=== PATIENT | male | born 1965 | race African-American/Black ===

== ENCOUNTER 2019-01-22 08:04 | Emergency (ER) | payer BC ==
[2019-01-22 08:08] VITALS: TEMP 98; BMI 29.5
--- NOTE | 2019-01-22 08:31 | PDOC ---
Attending Attestation - Resident Resident Name: Wilver Grimm - ED Attending Attestation I have performed the following: I have examined & evaluated the patient, The case was reviewed & discussed with the resident, I agree w/resident's findings & plan, Exceptions are as noted - HPI HPI: 01/22/19 08:30 53y M no pmhx presents with complaint of chest pain since this morning. Pt states he woke up with the pain - the pain is a nonradiating aching pressure elkin is there when he takes a deep breath or moves his L arm. Pt denies any sob, cough, fever/chills, asher, hemoptysis, n/v, diaphoreis, abd pain, back pain. 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 Pt took a akselzer withou improvment. pt is not current smoking (smoked 1/2pack a day for5 yeas in the past) denies any drug use family of CAD in 80s - Physicial Exam PE: 01/22/19 09:38 GENERAL: The patient is awake, alert, and fully oriented, Nontoxic - in no acute distress. HEAD: Normocephalic, atraumatic. EYES: extraocular movements intact, sclera anicteric, conjunctiva clear. ENT: Normal voice, Moist mucous membranes. NECK: Normal range of motion, supple LUNGS: Breath sounds equal, clear to auscultation bilaterally. No wheezes, no rhonchi, no rales. HEART: Regular rate and rhythm, normal S1 and S2 without murmur, rub or gallop. CHEST: Reproducible tenderness on the mid sternum and left parasternal regin tht exactly reproduces his pain, possible reproduced with shoulder extension/ aduction. ABDOMEN: Soft, nontender, No guarding, no rebound. No CVA tenderness EXTREMITIES: Normal range of motion, no edema. NEUROLOGICAL: No facial assymetry, Normal speech, PSYCH: Normal mood, normal affect. SKIN: Warm, Dry, normal turgor, - Medical Decision Making 01/22/19 09:40 Suspect the patient's symptoms are muscular in nature as it is exactly reproduced when his shoulder is extended and abducted. Screening EKG was performed which was unremarkable Will obtain will give Tylenol for pain Heart Score/ECG Review - ECG Impressions Comment:: 01/22/19 09:41 Twelve-lead EKG was performed and reviewed by me. There is normal sinus rhythm with a normal rate. Rate of 78 The axis is normal. The intervals are normal. There is normal R wave progression There are no ST or T wave abnormalities. Impression: Normal twelve-lead EKG
--- NOTE | 2019-01-22 08:36 | PDOC ---
History of Present Illness - General Chief Complaint: Chest Pain Stated Complaint: CHEST PAIN Time Seen by Provider: 01/22/19 08:13 History Source: Patient Exam Limitations: No Limitations - History of Present Illness Initial Comments: 01/22/19 18:12 HPI: 53M w/o PMH c/o nonradiating, constant, dull pressure like midsternal chest pain that started when he woke up 5:30 AM today. Pain is worse w/ sitting up and deep inspiration. Pt took yue-seltzer w/o relief. Denies sob, palpitations , f/c/cough/runnynose/rhinorrhea, n/v/abdpain. Denies h/o VTE or recent immobilization. 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 Denies trauma. Denies PMH No PCP Allergies reviewed - ibuprofen (stomach ache) Denies smoking, drinking, ilicit drugs +FHx heart dz in father Past History - Past Medical History Allergies/Adverse Reactions: Allergies Allergy/AdvReac Type Severity Reaction Status Date / Time ibuprofen Allergy Verified 01/22/19 08:08 Home Medications: Ambulatory Orders NK [No Known Home Medication] 01/22/19 COPD: No - Psycho Social/Smoking Cessation Hx Smoking History: Never smoked Review of Systems - Review of Systems Able to Perform ROS?: Yes Comments:: 01/22/19 18:12 ROS: CONSTITUTIONAL: Denies F / C HEENT: Denies lightheadedness, dizziness. Denies sore throat, rhinorrhea. RESP: Denies SOB, cough CARD: Endorses chest pain. Denies palpitations GI: Denies N / V / D, abdominal pain : Denies dysuria SKIN: Denies rashes Is the patient limited Armenian proficient: No *Physical Exam - Vital Signs Last Vital Signs Temp Pulse Resp BP Pulse Ox 98 F 82 18 116/80 99 01/22/19 08:06 01/22/19 08:15 01/22/19 08:06 01/22/19 08:06 01/22/19 08:15 - Physical Exam Comments: 01/22/19 18:12 PE: VS reviewed GEN: Well appearing, NAD, comfortable. AAOx3 HEENT: NC/AT. No facial asymmetry. Moist mucous membranes. Normal voice. Supple neck w/ FROM. CV: +TTP of the midsternum (pt describes as the same pain). S1/S2, RRR, no m/r/g LUNG: Normal inspiratory effort, pt states same pain w/ deep inspiration. CTAB, no wheezes, crackles, rales, rhonchi. GI: soft, ndnt, +BS, no guarding, no rebound. EXTREMITIES: No LE edema. No obvious deformities of all extremities. SKIN: warm, dry, normal turgor PSYCH: normal mood and affect NEURO: Moving all extremities well, ambulating w/ normal gait Medical Decision Making - Medical Decision Making 01/22/19 08:33 MDM: 53M otherwise healthy c/o dull constant nonradiating chest pain worse w/ deep inspiration and palpation since 5:30am. Has a job that requires heavy pushing/ pulling. DDx - very likely MSK - EKG - CXR - Pain ctrl EKG 01/22/19 09:17 HR 78 PA 150 QRS 98 QTc 410 NSR 01/22/19 09:15 CXR demonstrates no acute pathology reassess after tylenol 01/22/19 09:39 pain decreased w/ tylenol DC home w/ PCP f/u and return precautions Discharge - Discharge Information Problems reviewed: Yes Clinical Impression/Diagnosis: Muscular pain Condition: Stable - Follow up/Referral Referrals: [facility] [place] [Provider Group] - Patient Discharge Instructions Patient Printed Discharge Instructions: DI for Muscle Strain Additional Instructions: You were seen in the Emergency Department Take tylenol for pain as directed on the label We have referred you to the [facility] - You can receive your primary care there. Call the number provided to schedule an appointment. Follow up with this clinic regarding your visit in the next 2-3 days. IMMEDIATELY return to the Emergency Department if you experience any of the following: - worsening symptoms - shortness of breath - ANYTHING that concerns you - Post Discharge Activity
[2019-01-22] MEDS ORDERED: ACETAMINOPHEN 325 MG TABLET (FP) PO ONE (09:04)
[2019-01-22] MEDS ORDERED: ACETAMINOPHEN 325 MG TABLET (FP) ONE (09:07)
[2019-01-22 09:25] VITALS: BP 127/74; PULSE 68
--- NOTE | 2019-01-23 10:16 | EKG ---
Test Reason : Blood Pressure : / mmHG Vent. Rate : 078 BPM Atrial Rate : 078 BPM P-R Int : 150 ms QRS Dur : 098 ms QT Int : 360 ms P-R-T Axes : 034 023 021 degrees QTc Int : 410 ms NORMAL SINUS RHYTHM NORMAL ECG NO PREVIOUS ECGS AVAILABLE Confirmed by SARAH CHARLES MD ([id number]) on 01/23/2019 10:16:10 AM Referred By: Confirmed By:SARAH CHARLES MD
== END 2019-01-22 09:48 | disposition home or self-care (01) ==
LOC: JER 08:04
DX: M79.10 Myalgia, unspecified site (principal); R07.9 Chest pain, unspecified; Z88.6 Allergy status to analgesic agent
CPT/HCPCS: 71046-TC-FY; 93005; 93010; 99283-25

== ENCOUNTER 2020-04-23 13:18 | Emergency (ER) | payer BC ==
[2020-04-23 13:48] VITALS: BMI 28.7
[2020-04-23 15:12] LABS: BASO % 0.6 % (0-2.0); EOS % 1.2 % (0-4.5); HEMATOCRIT 44.1 % (35.4-49); HEMOGLOBIN 14.8 GM/dL (11.7-16.9); MCH 30.8 pg (25.7-33.7); MCHC 33.6 g/dl (32.0-35.9); MEAN CELL VOLUME 91.7 fl (80-96); MEAN PLT VOLUME 8.9 fl (7.5-11.1); MONO % 7.9 % (3.8-10.2); NEUT % 62.3 % (42.8-82.8); PLATELET COUNT 193 K/MM3 (134-434); RBC 4.81 M/mm3 (4.00-5.60); RDW 14.5 % (11.9-15.9); WHITE BLOOD COUNT 5.3 K/mm3 (4.0-10.0)
[2020-04-23 15:19] LABS: INR 1.06 (0.83-1.09); PROTHROMBIN TIME (PATIENT) 12.8 SEC (9.7-13.0)
[2020-04-23 15:22] LABS: ACTIVATED PTT 31.4 SECONDS (25.2-36.5); CHLORIDE 110 mmol/L (98-107); POTASSIUM 4.1 mmol/L (3.5-5.1); SODIUM 144 mmol/L (136-145)
[2020-04-23 15:25] LABS: CALCIUM 8.9 mg/dL (8.5-10.1)
[2020-04-23 15:26] LABS: ALBUMIN 3.5 g/dl (3.4-5.0); ANION GAP 7 MMOL/L (8-16); BLOOD UREA NITROGEN 12.6 mg/dL (7-18); CO2 26 mmol/L (21-32); GLUCOSE,RANDOM 87 mg/dL (74-106)
[2020-04-23 15:28] LABS: SGOT/AST 16 U/L (15-37); SGPT/ALT 13 U/L (13-61)
[2020-04-23 15:30] LABS: BILIRUBIN,TOTAL 0.4 mg/dL (0.2-1); TOT PROT 6.8 g/dl (6.4-8.2)
[2020-04-23 15:31] LABS: ALK PHOS 74 U/L (45-117)
[2020-04-23] MEDS ORDERED: SODIUM CHLORIDE 1,000 ML IV ONE (15:52)
[2020-04-23 16:13] LABS: URINE APPEARANCE CLEAR; URINE BILIRUBIN NEGATIVE (NEGATIVE); URINE COLOR YELLOW; URINE GLUCOSE (UA) NEGATIVE (NEGATIVE); URINE KETONE NEGATIVE (NEGATIVE); URINE LEUK ESTERASE NEGATIVE (NEGATIVE); URINE NITRITE NEGATIVE (NEGATIVE); URINE PROTEIN NEGATIVE (NEGATIVE)
[2020-04-23 17:32] VITALS: BP 140/80; PULSE 72; TEMP 98.5
== END 2020-04-23 17:35 | disposition home or self-care (01) ==
LOC: JER 13:18
PROC: 3E0337Z Introduction of Electrolytic and Water Balance Substance into Peripheral Vein, Percutaneous Approach (ICD-10-PCS; principal; 2020-04-23)
DX: R55 Syncope and collapse (principal)
CPT/HCPCS: 36415; 70450-TC; 71045-TC-FY; 80053; 81003; 82550; 82962; 84484; 85025; 85610; 85730; 87086; 93005; 93010; 99285-25